=== PATIENT | female | born 1975 ===

== ENCOUNTER 2018-12-01 16:38 | Emergency (ER) | payer OTHER ==
--- NOTE | 2018-12-01 17:35 | ER Document Report ---
ED Medical Screen (RME) - General Chief Complaint: Knee Injury Stated Complaint: FALL/KNEE PAIN Time Seen by Provider: 12/01/18 17:29 Mode of Arrival: Ambulatory Information source: Patient Notes: The 43-year-old female presented to ED for complaint of pain to the right knee. She states he fell landing on the knees and one knee went behind to the other one with the other direction. She states she has had torn ACL and cartilage repair to the knee she is also had a tonsillectomy gastric sleeve. She has been diagnosed with Sjogren's. Patient is alert oriented respirations regular and unlabored speaking in full sentences. She states she did need to drive an hour to come to the emergency room no she does not want any time off. I have greeted and performed a rapid initial assessment of this patient. A comprehensive ED assessment and evaluation of the patient, analysis of test results and completion of medical decision making process will be conducted by an additional ED providers. TRAVEL OUTSIDE OF THE [place] IN LAST 30 DAYS: No - Related Data Allergies/Adverse Reactions: No Known Allergies Allergy (Verified 12/01/18 17:24) Past Medical History - Social History Chew tobacco use (# tins/day): No Frequency of alcohol use: None Drug Abuse: None Physical Exam - Vital signs Vitals: Temp Pulse BP Pulse Ox 98.1 F 81 127/72 H 100 12/01/18 17:04 12/01/18 17:04 12/01/18 17:04 12/01/18 17:04 Course - Vital Signs Vital signs: Temp Pulse Resp BP Pulse Ox 98.1 F 81 127/72 H 100 12/01/18 17:04 12/01/18 17:04 12/01/18 17:04 12/01/18 17:04
--- NOTE | 2018-12-01 18:14 | ER Document Report ---
ED Extremity Problem, Lower - General Chief Complaint: Knee Injury Stated Complaint: FALL/KNEE PAIN Time Seen by Provider: 12/01/18 17:29 Mode of Arrival: Ambulatory Information source: Patient TRAVEL OUTSIDE OF THE [place] IN LAST 30 DAYS: No - HPI Notes: Patient presents with plan of right knee pain. She states yesterday she was walking down some steps when she lost her balance and her right knee bent under her. She states the pain is now constant. Is worse with movement and better with rest. It radiates up the right leg. She states she is also noticed swelling. She states she called orthopedics today who referred her to the emergency department. She states she would not prefer to not have an x-ray. She also states that she does not want any type of pain medicine. She denies any other injuries. - Related Data Allergies/Adverse Reactions: No Known Allergies Allergy (Verified 12/01/18 17:24) Past Medical History - General Information source: Patient - Social History Smoking Status: Never Smoker Chew tobacco use (# tins/day): No Frequency of alcohol use: None Drug Abuse: None Family History: Reviewed & Not Pertinent Patient has suicidal ideation: No Patient has homicidal ideation: No Review of Systems - Review of Systems Constitutional: denies: Chills, Fever Cardiovascular: denies: Chest pain, Palpitations Respiratory: denies: Cough, Short of breath Physical Exam - Vital signs Vitals: Temp Pulse BP Pulse Ox 98.1 F 81 127/72 H 100 12/01/18 17:04 12/01/18 17:04 12/01/18 17:04 12/01/18 17:04 Interpretation: Normal - General General appearance: Appears well, Alert In distress: None - Respiratory Respiratory status: No respiratory distress Breath sounds: Normal - Extremities General lower extremity: Other - Left lower extremity unremarkable. Right lower extremity has an old surgical scar over the patella. The right knee does have a moderate effusion. It it is soft. Mildly warm. There is no erythema. She is able to ambulate without assistance. - Neurological Neuro grossly intact: Yes Cognition: Normal Orientation: AAOx4 [place] Coma Scale Eye Opening: Spontaneous [place] Coma Scale Verbal: Oriented [place] Coma Scale Motor: Obeys Commands [place] Coma Scale Total: 15 Speech: Normal Sensory: Normal - Psychological Associated symptoms: Normal affect, Normal mood - Skin Skin Temperature: Warm Skin Moisture: Dry Skin Color: Normal Course - Vital Signs Vital signs: Temp Pulse Resp BP Pulse Ox 98.1 F 81 127/72 H 100 12/01/18 17:04 12/01/18 17:04 12/01/18 17:04 12/01/18 17:04 Discharge - Discharge Clinical Impression: Right knee sprain Qualifiers: Encounter type: initial encounter Involved ligament of knee: unspecified ligament Qualified Code(s): S83.91XA - Sprain of unspecified site of right knee, initial encounter Condition: Stable Disposition: HOME, SELF-CARE Instructions: Sprained Knee ([facility]) Additional Instructions: Please follow-up with orthopedics as scheduled
[2018-12-01 18:21] VITALS: BP 115/70
== END 2018-12-01 18:21 | disposition home or self-care (01) ==
LOC: ER 16:38
DX: S83.91XA Sprain of unspecified site of right knee, initial encounter (principal); M25.561 Pain in right knee; X50.0XXA Overexertion from strenuous movement or load, initial encounter